=== PATIENT | female | born 1980 | race Caucasian/White ===

== ENCOUNTER 2017-10-07 19:52 | Emergency (ER) | payer MEDICAID ==
[~2017-10-07] VITALS: Ht 160 cm; Wt 90.9 kg
[~2017-10-07 19:52] MED LIST: DSS100 PO; HYDR-309 PO
[2017-10-07] MEDS ORDERED: NAPR-58 PO (20:27)
[2017-10-07 21:38] VITALS: BP 141/91
[2017-10-07] MEDS ORDERED: CefTRIAXone SODIUM 1 GM/VIAL IM ONE (22:00)
[2017-10-07] MEDS ORDERED: LIDOCAINE HCL/PF 1% 2 ML VIAL IM ONE (22:00)
== END 2017-10-07 22:25 | disposition home or self-care (01) ==
LOC: EMS 19:53
DX: N61.0 Mastitis without abscess (principal); Z90.49 Acquired absence of other specified parts of digestive tract; Z98.51 Tubal ligation status; Z79.1 Long term (current) use of non-steroidal anti-inflammatories (NSAID)
CPT/HCPCS: 96372; 99283; J0696; J3490

== ENCOUNTER 2021-06-16 23:05 | Emergency (ER) | payer MEDICAID ==
[~2021-06-16] VITALS: Ht 162.6 cm; Wt 75.0 kg
[~2021-06-16 23:05] MED LIST changes: -DSS100 PO; -HYDR-309 PO; +NAPR-1025 PO
[2021-06-17] MEDS ORDERED: SODIUM CHLORIDE 0.9% 1,000 ML IV ONE (00:15)
[2021-06-17] MEDS ORDERED: ACETAMINOPHEN 500 MG TABLET PO ONE (00:15)
[2021-06-17] MEDS ORDERED: KETOROLAC TROMETHAMINE 30 MG/ML VIAL IVP ONE (01:00)
[2021-06-17] MEDS ORDERED: METOCLOPRAMIDE HCL 5 MG/ML 2 ML VIAL IVP ONE (01:00)
[2021-06-17] MEDS ORDERED: DiphenhydrAMINE HCL 50 MG/ML VIAL IVP ONE (01:00)
[2021-06-17 01:02] LABS: BASOPHILS % (AUTO) 0.2 % (0.0-2.0); EOSINOPHILS % (AUTO) 0.1 % (1.0-6.0); HEMATOCRIT 39.9 % (36-46); HEMOGLOBIN 13.2 g/dL (12.0-16.0); LYMPHOCYTES # (AUTO) 1.4 K/uL (1.0-4.8); LYMPHOCYTES % (AUTO) 10.7 % (22.0-44.0); MEAN CORPUSCULAR HEMOGLOBIN 24.2 pg (26.0-34.0); MEAN CORPUSCULAR HGB CONC 33.1 G/dL (31.0-37.0); MEAN CORPUSCULAR VOLUME 73 fL (80-100); MONOCYTES # (AUTO) 0.6 K/uL (0.1-1.0); MONOCYTES % (AUTO) 4.2 % (2.0-9.0); NEUTROPHILS # (AUTO) 11.1 K/uL (1.8-7.7); NEUTROPHILS % (AUTO) 84.8 % (40.0-70.0); PLATELET COUNT (AUTO) 223 K/uL (150-450); RED BLOOD CELL COUNT(AUTO) 5.46 MIL/uL (4.00-5.20); RED CELL DISTRIBUTION WIDTH 15.1 % (11.5-14.5)
[2021-06-17 01:12] LABS: ANION GAP 13 mmol/L (8-16); CALCIUM, TOTAL 8.5 mg/dL (8.8-10.5); CARBON DIOXIDE 25 mmol/L (22-29); CHLORIDE 100 mmol/L (98-107); CREATININE 0.58 mg/dL (0.60-1.30); GLUCOSE,RANDOM 122 mg/dL (70-110); POTASSIUM 3.4 mmol/L (3.5-5.1); SODIUM SERUM 138 mmol/L (136-145); UREA NITROGEN, BLOOD 12 mg/dL (7-18)
[2021-06-17 01:15] LABS: GLOMERULAR FILTR. RATE CALC > 60 mL/min (>60)
[2021-06-17 01:18] LABS: ALANINE AMINOTRANSFERASE 23 U/L (12-78); ALBUMIN 3.4 g/dL (3.4-5.0); ALKALINE PHOSPHATASE 117 U/L (46-116); ASPARTATE AMINOTRANSFERASE 15 U/L (15-37); BILIRUBIN,TOTAL 0.4 mg/dL (0.1-1.0); TOTAL PROTEIN, SERUM 8.4 g/dL (6.4-8.2)
[2021-06-17 02:44] VITALS: BP 125/75
== END 2021-06-17 03:42 | disposition home or self-care (01) ==
LOC: EMS 23:18
DX: R51.9 Headache, unspecified (principal); I10 Essential (primary) hypertension; Z90.49 Acquired absence of other specified parts of digestive tract; Z98.51 Tubal ligation status; Z98.890 Other specified postprocedural states
CPT/HCPCS: 70450; 80053; 85025; 93005; 96361; 96374; 96375; 99285; J1200; J1885; J2765; J7030

== ENCOUNTER 2022-03-10 10:35 | Emergency (ER) | payer MEDICAID ==
[~2022-03-10] VITALS: Ht 160 cm; Wt 77.0 kg
[2022-03-10] MEDS ORDERED: IBUP-1493 PO (10:38)
[2022-03-10] MEDS ORDERED: VENL-68 PO (12:06)
[2022-03-10] MEDS ORDERED: MEDR2.5T6 PO (12:06)
[2022-03-10] MEDS ORDERED: SODIUM CHLORIDE 0.9% 1,000 ML IV ONE (12:15)
[2022-03-10] MEDS ORDERED: METOCLOPRAMIDE HCL 5 MG/ML 2 ML VIAL IVP ONE (12:15)
[2022-03-10] MEDS ORDERED: ACETAMINOPHEN 325 MG TABLET PO ONE (12:15)
[2022-03-10 13:35] VITALS: BP 122/83
== END 2022-03-10 14:58 | disposition home or self-care (01) ==
LOC: EMS 10:40
DX: G43.909 Migraine, unspecified, not intractable, without status migrainosus (principal); I10 Essential (primary) hypertension; Z90.49 Acquired absence of other specified parts of digestive tract; Z98.51 Tubal ligation status; Z98.890 Other specified postprocedural states
CPT/HCPCS: 99285; 96374; 96361; J2765; J7030

== ENCOUNTER 2024-02-06 00:57 | Emergency (ER) | payer MEDICAID, OTHER ==
[~2024-02-06] VITALS: Ht 154.9 cm; Wt 80.9 kg
[~2024-02-06 00:57] MED LIST changes: +IBUP-1493 PO; +MEDR2.5T6 PO; -NAPR-1025 PO; +VENL-68 PO
[2024-02-06 01:13] VITALS: BP 149/96; PULSE 104; RESP 16; TEMP 97.7; O2SAT 97
== END 2024-02-06 03:22 | disposition left against medical advice (07) ==
LOC: EDUNIT# 00:57 → EMS 01:02
DX: Z53.21 Procedure and treatment not carried out due to patient leaving prior to being seen by health care provider (principal)